=== PATIENT | male | born 1995 | race Hispanic/Latino ===

== ENCOUNTER 2019-01-13 10:09 | Emergency (ER) | payer OTHER ==
[2019-01-13 10:16] VITALS: BMI 23.7
--- NOTE | 2019-01-13 11:14 | ED PDOC ---
Lower Extremity Pain/Injury Time Seen by Provider: 01/13/19 10:50 Chief Complaint (Nursing): Lower Extremity Problem/Injury Chief Complaint (Provider): RIGHT ANKLE PAIN History Per: Patient History/Exam Limitations: no limitations Onset/Duration Of Symptoms: Hrs Current Symptoms Are (Timing): Still Present Severity: Mild Pain Scale Rating Of: 4 Additional History Per: Patient Additional Complaint(s): 23 Y/O MALE WITH NO PERTINENT MEDICAL HX PRESENTS TO THE ED WITH RIGHT LATERAL ANKLE PAIN AND SWELLING SINCE LAST NIGHT AFTER SOMEONE "FELL ON ANKLE" WHILE PLAYING SOCCER. PT STATES PAIN WORSE UPON APPLYING WEIGHT TO ANKLE. - Hip Description Of Injury: Fell, Other Past Medical History Reviewed: Historical Data, Nursing Documentation, Vital Signs Vital Signs: Last Vital Signs Temp 98.8 F 01/13/19 10:16 Pulse 80 01/13/19 10:16 Resp 16 01/13/19 10:16 BP 130/76 01/13/19 10:16 Pulse Ox 99 01/13/19 10:16 YUMI Report Viewed: No - Medical History PMH: No Chronic Diseases - Surgical History Surgical History: No Surg Hx - Family History Family History: States: Unknown Family Hx - Social History Alcohol: None Drugs: Denies - Home Medications Home Medications: Ambulatory Orders Medication Instructions Recorded Ibuprofen [Motrin] 600 mg PO Q8H PRN #21 tab 01/13/19 - Allergies Allergies/Adverse Reactions: Allergies Allergy/AdvReac Type Severity Reaction Status Date / Time No Known Allergies Allergy Verified 01/13/19 10:24 Wells Criteria for PE - Wells Criteria for Pulmonary Embolism Clinical Signs and Symptoms of DVT: No P.E is #1 Diagnosis, or Equally Likely: No Heart Rate >100: No Immobilization at least 3 days;Surgery previous 4 weeks: No Previous, objectively diagnosed PE or DVT: No Hemoptysis: No Malignancy w/treatment within 6 months, or palliative: No Total Score: 0 Review of Systems ROS Statement: Except As Marked, All Systems Reviewed And Found Negative Constitutional: Positive for: Fever Musculoskeletal: Positive for: Foot Pain (PT DENIES FOOT PAIN ), Other (R ANKLE PAIN ) Physical Exam - Reviewed Nursing Documentation Reviewed: Yes Vital Signs Reviewed: Yes - Physical Exam Appears: Positive for: Well, Non-toxic, No Acute Distress Head Exam: Positive for: ATRAUMATIC, NORMAL INSPECTION, NORMOCEPHALIC Skin: Positive for: Normal Color, Warm, DRY Eye Exam: Positive for: EOMI, Normal appearance, PERRL ENT: Positive for: Normal ENT Inspection Neck: Positive for: Normal, Painless ROM Cardiovascular/Chest: Positive for: Regular Rate, Rhythm Respiratory: Positive for: CNT, Normal Breath Sounds Pulses-Dorsalis Pedis (L): 2+ Pulses-Dorsalis Pedis (R): 2+ Gastrointestinal/Abdominal: Positive for: Normal Exam Extremity: Positive for: Tenderness (RIGHT LATERAL MALLEOLUS TENDERNESS ON PALPATION. LIMITED EXT AND FLEXTION OF THE JOINT DUE TO PAIN ), Capillary Refill (<2 SECS), Swelling (RIGHT ANKLE LATERAL MALLELOUS SWELLING ), Other (RIGHT EXT IS WARM TO TOUCH, COLOR WNL, PT IS ABLE TO MOVE PHALANGES W/O DISCOMFORT). Negative for: Deformity DTR - Ankle (R): 2+ DTR - Ankle (L): 2+ Neurological/Psych: Positive for: Awake, Alert, Normal Tone, Oriented - ECG O2 Sat by Pulse Oximetry: 99 - Progress ED Course And Treament: RIGHT ANKLE XRAY PT OFFERED PAIN MEDICATION, PT REFUSED ANKLE XRAY INTERPRETATION BY SPEECH PATHOLOGY SUPERVISOR: SOFT TISSUE SWELLING, NEG FOR FRACTURES CLINICAL FINDINGS DISCUSSED WITH PT. XRAY INTERPRETATION RIGHT ANKLE SPRAIN. KEANU BANDAGE AND AIR CAST TO BE WORN ON AMBULATION FOR SUPPORT. ICE AND ELEVATE WHILE RESTING. RX GIVEN FOR MOTRIN 600MG PO. PT VERBALIZES UNDERSTANDING. GIVEN RETURN TO ED PRECAUTIONS. RIGHT FOOT NEURO/ VASCULAR INTACT POST KEANU BANDAGE PLACEMENT. Accession No. : [id number] Patient Name / ID : FOREIGN MCCAIN / [id number] Exam Date : 01/13/2019 11:35:17 ( Approved ) Study Comment : Sex / Age : M / 23Y Creator : Vince Reyes MD Dictator : Vince Reyes MD Fisher Seal : Oil Operator : Vince Reyes MD Approver2 : Report Date : 01/13/2019 13:14:00 My Comment : Date of service: 01/13/2019 PROCEDURE: Right Ankle Radiographs. HISTORY: ankle swelling/pain COMPARISON: None available. TECHNIQUE: 3 views obtained. FINDINGS: BONES: Normal. No fracture. JOINTS: Normal. No osteoarthritis. Ankle mortise maintained. Talar dome intact SOFT TISSUES: Lateral soft tissue swelling noted OTHER FINDINGS: None. IMPRESSION: No fracture. Lateral soft tissue swelling. Re-evaluation Time: 12:17 Disposition - Clinical Impression Clinical Impression: Ankle sprain, Ankle sprain and strain - Patient ED Disposition Is Patient to be Admitted: No Counseled Patient/Family Regarding: Diagnosis - Disposition Referrals: Saqib Holden DPM [Staff Provider] - Disposition: Routine/Home Disposition Time: 12:17 Condition: GOOD Prescriptions: Ibuprofen [Motrin] 600 mg PO Q8H PRN #21 tab PRN Reason: Pain, Moderate (4-7) Instructions: Ankle Sprain Print Language: SLOVAK - POA Present On Arrival: None
[2019-01-13 12:55] VITALS: BP 122/76; PULSE 77; RESP 18
[2019-01-13 13:46] VITALS: TEMP 97.9
--- NOTE | 2019-01-13 14:04 | RAD ---
Date of service: 01/13/2019 PROCEDURE: Right Ankle Radiographs. HISTORY: ankle swelling/pain COMPARISON: None available. TECHNIQUE: 3 views obtained. FINDINGS: BONES: Normal. No fracture. JOINTS: Normal. No osteoarthritis. Ankle mortise maintained. Talar dome intact SOFT TISSUES: Lateral soft tissue swelling noted OTHER FINDINGS: None. IMPRESSION: No fracture. Lateral soft tissue swelling.
[2019-01-13 16:41] VITALS: O2SAT 99
== END 2019-01-13 13:13 | disposition home or self-care (01) ==
LOC: H.ER 10:09
DX: S93.401A Sprain of unspecified ligament of right ankle, initial encounter (principal); W50.0XXA Accidental hit or strike by another person, initial encounter; Y93.66 Activity, soccer